=== PATIENT | male | born 1975 | race Caucasian/White ===

== ENCOUNTER 2017-09-02 10:51 | Emergency (ER) | payer OTHER ==
[~2017-09-02] VITALS: Ht 185.4 cm; Wt 109.8 kg
[2017-09-02 10:54] VITALS: BP 129/104
--- NOTE | 2017-09-02 10:58 | NUR ---
Patient ambulated to bed 9. RN evaluating patient at bedside.
--- NOTE | 2017-09-02 11:00 | NUR ---
42 YO M BIB SELF W/ C/O "EYES FEELING FUNNY' FOR THE PAST 45 MINUTES. SAYS HIS PAIN/DISCOMFORT IS 4/10 AND IT IS JUST "ANNOYING" AND PRESSURE-LIKE, HE FEELS THOUGH HIS EYES ARE "JUST TIRED" AND "ROLL UP INTHO MY HEAD" ON THEIR OWN. NO REDNESS OR SWELLING NOTED TO EYES. PT DENIES TRAUMA, DENIES N/V/D, AND FEVER. PT A&O X4. GCS 15. AMBULATORY W/ STEADY GAIT. CMS INTACT. NO OTHER S/S REPORTED/NOTED. ER SECHRIST NOTIFIED. PT NEEDS MET. SAFETY PRECAUTIONS IN PLACE. WILL CONTINUE TO MONITOR.
[2017-09-02 11:47] LABS: EOSINOPHILS # (AUTO) 0.3 K/uL (0-0.4); EOSINOPHILS % (AUTO) 5.9 % (0.0-4.0); HEMATOCRIT 55.1 % (36-52); HEMOGLOBIN 18.5 g/dL (12.0-18.0); LYMPHOCYTES # (AUTO) 1.2 K/uL (2.0-11.5); LYMPHOCYTES % (AUTO) 23.8 % (20.5-51.1); MEAN CORPUSCULAR HEMOGLOBIN 31 pg (27-31); MEAN CORPUSCULAR HGB CONC 34 g/dL (33-37); MEAN CORPUSCULAR VOLUME 91.1 fL (80-94); MONOCYTES # (AUTO) 0.5 K/uL (0.8-1.0); MONOCYTES % (AUTO) 11.1 % (1.7-9.3); NEUTROPHILS # (AUTO) 2.9 K/uL (1.8-7.7); NEUTROPHILS % (AUTO) 58.2 % (42.2-75.2); PLATELET COUNT (AUTO) 160 K/uL (140-450); RED BLOOD CELL COUNT(AUTO) 6.04 MIL/uL (4.20-6.10); RED CELL DISTRIBUTION WIDTH 13.6 % (11.6-13.7)
--- NOTE | 2017-09-02 12:00 | NUR ---
PT RESTING COMFORTABLY IN THE [facility] AT THIS TIME. XRAY HAS BEEN TAKEN. PT NEEDS MET. WILL CONTINUE TO MONITOR.
[2017-09-02 12:19] LABS: ANION GAP 11.3 (8-16); CARBON DIOXIDE 29.2 mmol/L (21-32); CHLORIDE 105 mmol/L (98-107); CREATININE 1.4 mg/dL (0.7-1.3); GFR ARICAN-AMERICAN 71 mL/min (>90); GLUCOSE 97 mg/dL (74-106); POTASSIUM 4.5 mmol/L (3.5-5.1); SODIUM SERUM 141 mmol/L (136-145); UREA NITROGEN, BLOOD 23 mg/dL (7-18)
[2017-09-02 12:24] LABS: ALBUMIN 3.8 g/dL (3.4-5.0); ASPARTATE AMINOTRANSFERASE 21 U/L (15-37)
--- NOTE | 2017-09-02 13:00 | NUR ---
PT SITTING UP IN CHAIR WAITING FOR RESULTS AT THIS TIME. WILL CONTINUE TO MONITOR.
[2017-09-02 14:37] VITALS: BP 126/73
--- NOTE | 2017-09-02 14:38 | NUR ---
Patient discharged with v/s stable. Written and verbal after care instructions given and explained. Patient verbalized understanding. Ambulatory with steady gait. All questions addressed prior to discharge. Advised to follow up with PMD.
== END 2017-09-02 14:38 | disposition home or self-care (01) ==
LOC: MED 10:51
DX: E86.0 Dehydration (principal); N17.9 Acute kidney failure, unspecified; R53.1 Weakness
CPT/HCPCS: 36415; 71045; 80053; 84484; 85025; 93005; 99285; G0482; Q0092

== ENCOUNTER 2019-06-18 13:02 | Emergency (ER) | payer OTHER ==
[~2019-06-18] VITALS: Ht 185.4 cm; Wt 112.6 kg
[2019-06-18 13:19] VITALS: BP 145/94
[2019-06-18 13:22] VITALS: BP 145/94
--- NOTE | 2019-06-18 13:26 | NUR ---
PT AMB TO [facility]
--- NOTE | 2019-06-18 13:45 | NUR ---
1ST CALL BY YEIMY GARCIA, NO ANSWER
--- NOTE | 2019-06-18 13:49 | NUR ---
PATIENT LEFT WITHOUT BEING SEEN BY DR. LAMBERT. NO FURTHER CARE PROVIDED FOR PATIENT.
== END 2019-06-18 13:49 | disposition left against medical advice (07) ==
LOC: MED 13:02
DX: R05 Cough (principal); R06.02 Shortness of breath; R07.89 Other chest pain; Z53.21 Procedure and treatment not carried out due to patient leaving prior to being seen by health care provider
CPT/HCPCS: 93005; 99281; 99283

== ENCOUNTER 2020-12-08 12:42 | Emergency (ER) | payer OTHER ==
[~2020-12-08] VITALS: Ht 182.9 cm; Wt 112.0 kg
[2020-12-08 12:50] VITALS: BP 132/87
--- NOTE | 2020-12-08 13:05 | NUR ---
Pt ambulated to bed 07 with steady/even gait
--- NOTE | 2020-12-08 13:15 | NUR ---
RAD at bedside
[2020-12-08 13:53] VITALS: BP 132/87
--- NOTE | 2020-12-08 13:53 | NUR ---
BIB self from home with c/c left-sided chest tightness upon inspiration. States"heart feels weird" s/p 0915 leg workout at the gym. Patient states exerting himself during leg workout, had episode of dizziness "seeing stars" from sitting --> standing position. Denies any nausea, vomiting, diarrhea, abdominal pain, dizziness. Denies any medications prior to arrival. Patient had similar symptoms while taking testosterone x 1 year; states stopped 4 weeks ago and was seen at ER d/c'd for heart arrhythmias; states ER visit (-) troponin enzymes (-) stress test. PMH: Denies Meds: OTC alpha-lipoic acid, multivitamins NKA Sx: Appende
== END 2020-12-08 13:53 | disposition home or self-care (01) ==
LOC: MED 12:42
DX: R55 Syncope and collapse (principal); R07.81 Pleurodynia; Z90.49 Acquired absence of other specified parts of digestive tract
CPT/HCPCS: 71045; 93005; 99283

== ENCOUNTER 2021-03-02 15:16 | Emergency (ER) | payer OTHER ==
[~2021-03-02] VITALS: Ht 185.4 cm; Wt 108.9 kg
[2021-03-02 15:24] VITALS: BP 143/77
--- NOTE | 2021-03-02 15:27 | NUR ---
TENT 1.
--- NOTE | 2021-03-02 15:29 | NUR ---
BIB SELF C/O 9/10 SORE THROAT, CONGESTION, COUGH X 4 DAYS. COVID TESTED NEGATIVE LAST WEEK. PMH: DENIES
[2021-03-02] MEDS ORDERED: IBUP-2213 PO (15:44)
[2021-03-02] MEDS ORDERED: FLONAS NS (15:44)
[2021-03-02] MEDS ORDERED: PROM118S5 PO (15:44)
--- NOTE | 2021-03-02 16:29 | NUR ---
Patient discharged with v/s stable. Written and verbal after care instructions given and explained. Patient alert, oriented and verbalized understanding of instructions. Ambulatory with steady gait. All questions addressed prior to discharge. ID band removed. Patient advised to follow up with PMD. Rx of fluticasone,ibu,promethazine given. Patient educated on indication of medication including possible reaction and side effects. Opportunity to ask questions provided and answered.
[2021-03-02 16:38] VITALS: BP 143/77
== END 2021-03-02 16:29 | disposition home or self-care (01) ==
LOC: MED 15:16
DX: J06.9 Acute upper respiratory infection, unspecified (principal); R03.0 Elevated blood-pressure reading, without diagnosis of hypertension; Z79.899 Other long term (current) drug therapy
CPT/HCPCS: 99283

== ENCOUNTER 2021-08-02 18:20 | Emergency (ER) | payer OTHER ==
[~2021-08-02] VITALS: Ht 185.4 cm; Wt 113.9 kg
[~2021-08-02 18:20] MED LIST: FLONAS NS; IBUP-2213 PO; PROM118S5 PO
[2021-08-02 18:36] VITALS: BP 143/105
--- NOTE | 2021-08-02 19:06 | NUR ---
PT AMBULATED TO BED 03.
--- NOTE | 2021-08-02 19:20 | NUR ---
Dr. Lynch at bedside to exam patient.
[2021-08-02 19:30] LABS: BASOPHILS # (AUTO) 0.1 K/uL (0.00-0.22); EOSINOPHILS # (AUTO) 0.3 K/uL (0-0.4); EOSINOPHILS % (AUTO) 5.6 % (0.0-4.0); HEMATOCRIT 42.5 % (36-52); HEMOGLOBIN 14.5 g/dL (12.0-18.0); LYMPHOCYTES # (AUTO) 1.7 K/uL (2.0-11.5); LYMPHOCYTES % (AUTO) 30.9 % (20.5-51.1); MEAN CORPUSCULAR HEMOGLOBIN 31 pg (27-31); MEAN CORPUSCULAR HGB CONC 34 g/dL (33-37); MEAN CORPUSCULAR VOLUME 90.7 fL (80-94); MONOCYTES # (AUTO) 0.4 K/uL (0.8-1.0); MONOCYTES % (AUTO) 7.3 % (1.7-9.3); NEUTROPHILS % (AUTO) 55.2 % (42.2-75.2); PLATELET COUNT (AUTO) 169 K/uL (140-450); RED BLOOD CELL COUNT(AUTO) 4.69 MIL/uL (4.20-6.10); RED CELL DISTRIBUTION WIDTH 13.3 % (11.6-13.7); WHITE BLOOD COUNT (AUTO) 5.4 K/uL (4.8-10.8)
--- NOTE | 2021-08-02 19:35 | NUR ---
46/M BIB SELF TO THE ED WITH CHIEF COMPLAINT OF CHEST PAIN. A&OX4. VERBALLY RESPONSIVE AND ABLE TO COMMUNICATE NEEDS. VSS. PER PT, FELT DISCOMFORT IN THE MIDDLE OF THE CHEST IF PRESSURE LAST MONDAY (07/28/21). PT STATES HE DOES NOT FEEL ANY PAIN LOCALIZED IN THE MIDDLE OF THE CHEST. PER PT, DISCOMFORT HAPPENS RANDOMLY. PT STATED HE WENT TO THE GYM THE FOLLOWING DAY TO WORK OUT AND FELT FINE. PT STATES HE TOOK OMEPRAZOLE AND IMPROVED HIS CONDITION. PT SKIN INTACT AND AMBULATORY. PT IS CONTINENT OF VOID AND BM. ERMD AWARE. PMH: DENIES ALLERGIES: NKA MEDS: OMEPRAZOLE
[2021-08-02 19:53] LABS: ANION GAP 11.6 (8-16); CARBON DIOXIDE 27.5 mmol/L (21-32); CREATININE 1.2 mg/dL (0.6-1.3); POTASSIUM 4.1 mmol/L (3.5-5.1); TOTAL BILIRUBIN 0.4 mg/dL (0.0-1.0)
[2021-08-02 19:58] LABS: LIPASE 99 U/L (73-393)
--- NOTE | 2021-08-02 20:26 | NUR ---
ERMD AT BEDSIDE WITH PT.
[2021-08-02] MEDS ORDERED: FAMO-90 PO (20:30)
[2021-08-02 20:58] VITALS: BP 144/95
== END 2021-08-02 20:58 | disposition home or self-care (01) ==
LOC: MED 18:20
DX: K29.70 Gastritis, unspecified, without bleeding (principal); G21.9 Secondary parkinsonism, unspecified; R07.9 Chest pain, unspecified; Z90.49 Acquired absence of other specified parts of digestive tract; Z79.899 Other long term (current) drug therapy
CPT/HCPCS: 36415; 71045; 80053; 83690; 83880; 84484; 85025; 93005; 99285

== ENCOUNTER 2021-11-16 15:41 | Emergency (ER) | payer OTHER ==
[~2021-11-16] VITALS: Ht 185.4 cm; Wt 114.8 kg
[~2021-11-16 15:41] MED LIST changes: +FAMO-90 PO
[2021-11-16 15:48] VITALS: BP 142/95
--- NOTE | 2021-11-16 16:05 | NUR ---
BIB SELF C/O LEFT MIDDLE FINGER LAC WOUND S/P INJURY X TODAY.
[2021-11-16] MEDS ORDERED: BACITRACIN OINT 500 UNITS/GM PKT TP ONE (16:55)
--- NOTE | 2021-11-16 17:03 | NUR ---
PT L HAND WOUND ON 3RD DIGIT DRESSED WITH NON ADHERENT
== END 2021-11-16 17:05 | disposition home or self-care (01) ==
LOC: MED 15:41
DX: S61.213A Laceration without foreign body of left middle finger without damage to nail, initial encounter (principal); Z90.49 Acquired absence of other specified parts of digestive tract; X58.XXXA Exposure to other specified factors, initial encounter; Y93.89 Activity, other specified; Y92.89 Other specified places as the place of occurrence of the external cause; Y99.8 Other external cause status
CPT/HCPCS: 99282

== ENCOUNTER 2022-12-12 07:17 | Emergency (ER) | payer OTHER ==
[~2022-12-12] VITALS: Ht 180.3 cm; Wt 108.9 kg
[2022-12-12 08:16] VITALS: BP 156/80; PULSE 79; RESP 17; TEMP 98.6; O2SAT 98
[2022-12-12 08:46] VITALS: TEMP 98
[2022-12-12] MEDS ORDERED: ONDANSETRON 4 MG ODT PO ONE (08:50)
[2022-12-12] MEDS ORDERED: KETOROLAC 60 MG/2 ML VIAL IM ONE (08:50)
[2022-12-12 09:06] LABS: BASOPHILS # (AUTO) 0.1 K/uL (0.00-0.22); BASOPHILS % (AUTO) 0.5 % (0.0-2.0); EOSINOPHILS # (AUTO) 0.3 K/uL (0-0.4); EOSINOPHILS % (AUTO) 2.9 % (0.0-4.0); HEMATOCRIT 45.3 % (36-52); HEMOGLOBIN 15.3 g/dL (12.0-18.0); LYMPHOCYTES # (AUTO) 1.4 K/uL (2.0-11.5); MEAN CORPUSCULAR HEMOGLOBIN 30 pg (27-31); MEAN CORPUSCULAR HGB CONC 34 g/dL (33-37); MEAN CORPUSCULAR VOLUME 89.5 fL (80-94); MONOCYTES # (AUTO) 1.1 K/uL (0.8-1.0); MONOCYTES % (AUTO) 10.5 % (1.7-9.3); NEUTROPHILS # (AUTO) 7.5 K/uL (1.8-7.7); NEUTROPHILS % (AUTO) 72.1 % (42.2-75.2); PLATELET COUNT (AUTO) 238 K/uL (140-450); RED BLOOD CELL COUNT(AUTO) 5.06 MIL/uL (4.20-6.10); RED CELL DISTRIBUTION WIDTH 12.9 % (11.6-13.7); WHITE BLOOD COUNT (AUTO) 10.4 K/uL (4.8-10.8)
[2022-12-12 09:13] LABS: APPEARANCE,URINE CLEAR (CLEAR); BILIRUBIN,URINE NEGATIVE (NEGATIVE); BLOOD, URINE NEGATIVE (NEGATIVE); COLOR,URINE YELLOW (YELLOW); LEUKOCYTE ESTERASE ,URINE NEGATIVE (NEGATIVE); NITRITE, URINE NEGATIVE (NEGATIVE); PROTEIN,URINE TRACE (NEGATIVE); UGLUCOSE NEGATIVE (NEGATIVE); UROBILINOGEN,URINE 0.2 EU/dL (0.2 - 1)
[2022-12-12 09:21] LABS: ALBUMIN 3.3 g/dL (3.4-5.0); ANION GAP 11.5 (8-16); CALCIUM 8.7 mg/dL (8.5-10.1); CARBON DIOXIDE 27.5 mmol/L (21-32); TOTAL BILIRUBIN 0.5 mg/dL (0.0-1.0); TOTAL PROTEIN, SERUM 7.8 g/dL (6.4-8.2)
[2022-12-12] MEDS ORDERED: CEFP200T20 PO (10:50)
[2022-12-12] MEDS ORDERED: AZIT250T3 PO (10:50)
[2022-12-12] MEDS ORDERED: IBUP-2218 PO (10:50)
[2022-12-12 11:04] VITALS: BP 132/80; PULSE 74; RESP 17; O2SAT 98
== END 2022-12-12 11:04 | disposition home or self-care (01) ==
LOC: MED 07:17
DX: J18.9 Pneumonia, unspecified organism (principal); Z90.49 Acquired absence of other specified parts of digestive tract; Z79.899 Other long term (current) drug therapy; Z79.1 Long term (current) use of non-steroidal anti-inflammatories (NSAID)
CPT/HCPCS: 36415; 71046; 74176; 80053; 81003; 83690; 85025; 96372; 99285; J1885; Q0162

== ENCOUNTER 2023-06-21 08:08 | Emergency (ER) | payer OTHER ==
[~2023-06-21] VITALS: Ht 185.4 cm; Wt 111.1 kg
[~2023-06-21 08:08] MED LIST changes: +AZIT250T3 PO; +CEFP200T20 PO; +IBUP-2218 PO
[2023-06-21 08:15] VITALS: BP 127/78; PULSE 99; RESP 18; TEMP 97.7; O2SAT 99
[2023-06-21] MEDS: KETOROLAC 30 MG/ML VIAL IM ONE (08:54)
[2023-06-21 09:06] LABS: APPEARANCE,URINE CLEAR (CLEAR); BILIRUBIN,URINE NEGATIVE (NEGATIVE); BLOOD, URINE NEGATIVE (NEGATIVE); COLOR,URINE YELLOW (YELLOW); LEUKOCYTE ESTERASE ,URINE NEGATIVE (NEGATIVE); NITRITE, URINE NEGATIVE (NEGATIVE); PROTEIN,URINE NEGATIVE (NEGATIVE); UGLUCOSE NEGATIVE (NEGATIVE); UROBILINOGEN,URINE 0.2 EU/dL (0.2 - 1)
[2023-06-21 09:10] LABS: BACTERIA,URINE OCCASSIONAL /HPF (None Seen); MUCUS,URINE 1+ /LPF (None Seen); RBC,URINE 0-5 /HPF (0-5); SQUAMOUS EPITHELIAL CELL,UR 0-3 (FEW) /LPF (0-3 (FEW)); WBC,URINE 0-5 /HPF (0-5)
[2023-06-21] MEDS ORDERED: NAPR-54 PO (09:14)
[2023-06-21] MEDS ORDERED: CYCL-711 PO (09:14)
== END 2023-06-21 09:19 | disposition home or self-care (01) ==
LOC: MED 08:08
DX: M54.50 Low back pain, unspecified (principal); Z90.49 Acquired absence of other specified parts of digestive tract; Z98.890 Other specified postprocedural states; Z79.899 Other long term (current) drug therapy
CPT/HCPCS: 81001; 96372; 99283; J1885

== ENCOUNTER 2023-08-29 07:22 | Emergency (ER) | payer OTHER ==
[~2023-08-29] VITALS: Ht 185.4 cm; Wt 114.1 kg
[~2023-08-29 07:22] MED LIST changes: +CYCL-711 PO; +NAPR-337 PO
[2023-08-29 07:34] VITALS: BP 152/98; PULSE 94; RESP 19; TEMP 97.9; O2SAT 96
[2023-08-29 08:15] VITALS: BP 152/98; TEMP 97.9
[2023-08-29] MEDS: ASPIRIN 325 MG TAB PO ONE (08:20)
[2023-08-29 08:47] VITALS: O2SAT 96
[2023-08-29 08:54] LABS: BASOPHILS # (AUTO) 0.1 K/uL (0.00-0.22); BASOPHILS % (AUTO) 1.1 % (0.0-2.0); EOSINOPHILS # (AUTO) 0.2 K/uL (0-0.4); EOSINOPHILS % (AUTO) 3.7 % (0.0-4.0); HEMATOCRIT 45.3 % (36-52); HEMOGLOBIN 14.5 g/dL (12.0-18.0); LYMPHOCYTES # (AUTO) 1.2 K/uL (2.0-11.5); LYMPHOCYTES % (AUTO) 24.9 % (20.5-51.1); MEAN CORPUSCULAR HEMOGLOBIN 23 pg (27-31); MEAN CORPUSCULAR HGB CONC 32 g/dL (33-37); MEAN CORPUSCULAR VOLUME 72.6 fL (80-94); MONOCYTES # (AUTO) 0.5 K/uL (0.8-1.0); MONOCYTES % (AUTO) 11.4 % (1.7-9.3); NEUTROPHILS # (AUTO) 2.8 K/uL (1.8-7.7); NEUTROPHILS % (AUTO) 58.9 % (42.2-75.2); PLATELET COUNT (AUTO) 243 K/uL (140-450); RED BLOOD CELL COUNT(AUTO) 6.24 MIL/uL (4.20-6.10); WHITE BLOOD COUNT (AUTO) 4.7 K/uL (4.8-10.8)
[2023-08-29 08:56] LABS: APPEARANCE,URINE CLEAR (CLEAR); BILIRUBIN,URINE 1+ (NEGATIVE); BLOOD, URINE NEGATIVE (NEGATIVE); COLOR,URINE YELLOW (YELLOW); LEUKOCYTE ESTERASE ,URINE NEGATIVE (NEGATIVE); NITRITE, URINE NEGATIVE (NEGATIVE); PROTEIN,URINE NEGATIVE (NEGATIVE); UGLUCOSE NEGATIVE (NEGATIVE); UROBILINOGEN,URINE 0.2 EU/dL (0.2 - 1)
[2023-08-29 09:06] LABS: ANION GAP 12.6 (8-16); CALCIUM 8.9 mg/dL (8.5-10.1); CARBON DIOXIDE 25.4 mmol/L (21-32); CREATININE 1.1 mg/dL (0.6-1.3)
[2023-08-29 09:09] LABS: INR 0.98 (0.8-1.2); PARTIAL THROMBOPLASTIN TIME 24.3 secs (22-35.6); PROTHROMBIN TIME 10.3 secs (10.8-13.4)
[2023-08-29 09:13] LABS: ALANINE AMINOTRANSFERASE 31 U/L (12-78); ALKALINE PHOSPHATASE 52 U/L (50-136); ASPARTATE AMINOTRANSFERASE 19 U/L (15-37); BILIRUBIN,DIRECT 0.2 mg/dL (0.0-0.3); TOTAL BILIRUBIN 0.8 mg/dL (0.0-1.0); TOTAL PROTEIN, SERUM 7.6 g/dL (6.4-8.2)
[2023-08-29] MEDS: predniSONE 20 MG TAB PO ONE (09:21)
[2023-08-29 09:23] LABS: AMPHETAMINE, URINE NEGATIVE ng/ml (NEG <=1000); BARBITURATE, URINE NEGATIVE ng/ml (NEG <=200); BENZODIAZEPINE, URINE NEGATIVE ng/mL (NEG <=200); CANNABINOID, URINE POSITIVE ng/mL (NEG <=50); COCAINE, URINE POSITIVE ng/mL (NEG <=300); OPIATE, URINE NEGATIVE ng/mL (NEG <=2000); PHENCYCLIDINE SCREEN,URINE NEGATIVE ng/mL (NEG <=25)
[2023-08-29 09:25] LABS: D-DIMER < 100 ng/ml (0-400)
[2023-08-29 09:28] LABS: ICTOTEST POSITIVE (NEGATIVE)
[2023-08-29] MEDS: ALBUTEROL 0.083% 2.5 MG/3 ML NEBU INH ONE (09:31)
[2023-08-29 09:32] VITALS: PULSE 71; RESP 15; O2SAT 93; O2SAT 95
[2023-08-29] MEDS ORDERED: ALBU0.0912 IH (12:30)
[2023-08-29 12:42] VITALS: O2SAT 93
== END 2023-08-29 12:43 | disposition home or self-care (01) ==
LOC: MED 07:22
DX: R07.89 Other chest pain (principal); R09.89 Other specified symptoms and signs involving the circulatory and respiratory systems; Z79.1 Long term (current) use of non-steroidal anti-inflammatories (NSAID); Z79.899 Other long term (current) drug therapy
CPT/HCPCS: 36415; 71045; 80048; 80076; 80305; 81003; 83880; 84484; 85025; 85379; 85610; 85730; 93005; 94640; 99285; J7512; J7613